=== PATIENT | male | born 1995 ===

== ENCOUNTER 2019-01-18 05:00 | Day surgery (SDC) | payer OTHER | END 2019-01-18 10:30 | disposition home or self-care (01) | LOC: CIR.AMB 05:00 | DX: D17.1 Benign lipomatous neoplasm of skin and subcutaneous tissue of trunk (principal) ==

== ENCOUNTER → 2019-04-13 | Outpatient (CLI) | payer OTHER | END | disposition home or self-care (01) | LOC: MAMO-SONO 14:45 → SONOGRAMA 15:11 | DX: I86.1 Scrotal varices (principal) ==

== ENCOUNTER 2019-07-04 11:39 | Outpatient (CLI) | payer OTHER | END 2019-07-04 12:12 | disposition home or self-care (01) | LOC: SONOGRAMA 11:39 | DX: N45.3 Epididymo-orchitis (principal); R31.1 Benign essential microscopic hematuria; N20.0 Calculus of kidney ==

== ENCOUNTER 2019-08-08 14:20 | Outpatient (CLI) | payer OTHER | END 2019-08-08 14:30 | disposition home or self-care (01) | LOC: LAB 14:20 | DX: N45.3 Epididymo-orchitis (principal) ==

== ENCOUNTER 2019-08-13 07:18 | Outpatient (CLI) | payer OTHER | END 2019-08-13 07:22 | disposition home or self-care (01) | LOC: MRI 07:18 | DX: N45.3 Epididymo-orchitis (principal); D17.71 Benign lipomatous neoplasm of kidney; N41.0 Acute prostatitis | CPT/HCPCS: 72197; 74183 ==